=== PATIENT | female | born 1945 ===

== ENCOUNTER 2019-07-23 18:59 | Emergency (ER) | payer OTHER ==
[2019-07-23] MEDS ORDERED: MORPHINE 4 MG/ML SYR ONE (19:56)
[2019-07-23] MEDS ORDERED: ONDANSETRON 4 MG/2 ML VIAL ONE (19:56)
--- NOTE | 2019-07-23 20:32 | RAD REPORT ---
EXAM DESCRIPTION: RAD - Shoulder Left 2 View - 07/23/2019 8:14 pm CLINICAL HISTORY: PAIN COMPARISON: No comparisons TECHNIQUE: Internal and external rotation views of the left shoulder were obtained. FINDINGS: Proximal left humerus fracture is present. There is an oblique fracture through the greate r tuberosity without distraction or angulation deformity. Additional transverse fracture is suspected at the surgical neck. No pathologic component. There is no dislocation of the humeral head. Minimal AC joint degenerative changes are present. Acromial humeral joint space is normal. IMPRESSION: Proximal left humerus fracture as detailed.
--- NOTE | 2019-07-23 20:36 | ER ---
Nurse's Notes [facility] Name: Kandy Clay Age: 73 yrs Sex: Female : 1945 Arrival Date: 07/23/2019 Time: 19:01 Bed 18 Private MD: Diagnosis: Closed left proximal humerus fracture - oblique fracture of greater tuberosity and transverse fracture of surgical neck Presentation: 07/22 19:02 Chief complaint: EMS states: patient missed the last step and fell and landed on left shoulder. Coronavirus screen: Proceed with normal triage. Ebola Screen: No symptoms or risks identified at this time. Initial Sepsis Screen: Does the patient meet any 2 criteria? No. Patient's initial sepsis screen is negative. Does the patient have a suspected source of infection? No. Patient's initial sepsis screen is negative. Risk Assessment: Do you want to hurt yourself or someone else? Patient reports no desire to harm self or others. Onset of symptoms was July 23, 2019. 19:02 Method Of Arrival: EMS: [facility] 19:02 Acuity: HARSHIL 3 Triage Assessment: 19:15 Injury Description: fall. wh Historical: - Allergies: 19:05 No Known Allergies; - Home Meds: 19:05 Plavix Oral [Active]; - PMHx: 19:05 stroke; - PSHx: 19:05 Thyroidectomy; Appendectomy; back surgery; - Immunization history:: Adult Immunizations up to date. - Social history:: Smoking status: Patient denies any tobacco usage or history of. Screenin:15 Abuse screen: Denies threats or abuse. Denies injuries from another. Nutritional screening: No deficits noted. Tuberculosis screening: No symptoms or risk factors identified. Fall Risk None identified. Assessment: 19:15 General: Appears in no apparent distress. Behavior is calm, cooperative, appropriate wh for age. Pain: Complains of pain in left arm and anterior aspect of left shoulder Pain does not radiate. Pain currently is 9 out of 10 on a pain scale. Pain began 30 min ago. Neuro: Cardiovascular: Capillary refill < 3 seconds. Respiratory: Airway is patent Respiratory effort is even, unlabored, Respiratory pattern is regular, symmetrical. GI: Abdomen is flat, non-distended. : No signs and/or symptoms were reported regarding the genitourinary system. EENT: No signs and/or symptoms were reported regarding the EENT system. Derm: Skin is intact, is healthy with good turgor, Skin is pink, warm \T\ dry. normal. Musculoskeletal: Circulation, motion, and sensation intact. Range of motion: limited in anterior aspect of left shoulder. Vital Signs: 19:02 BP 119 / 68; Pulse 78; Resp 18; Pulse Ox 98% ; Weight 90.72 kg; Height 5 ft. 4 in. (162.56 cm); 19:02 Temp 97.8; 21:00 BP 128 / 61; Pulse 76; Resp 18; Pulse Ox 99% on R/A; 19:02 Body Mass Index 34.33 (90.72 kg, 162.56 cm) ED Course: 19:01 Patient arrived in ED. 19:04 Triage completed. 19:08 Jose Whitehead NP is PHCP. pm1 19:08 Elmer Dominguez MD is Attending Physician. pm1 19:15 Arm band placed on right wrist. 19:15 Patient has correct armband on for positive identification. Bed in low position. Call light in reach. Side rails up X 1. Pulse ox on. NIBP on. 19:25 Antoine Galvez is Primary Nurse. 19:30 No provider procedures requiring assistance completed. Inserted saline lock: 22 gauge in right antecubital area, using aseptic technique. Blood collected. 20:14 Shoulder Left (2 View) XRAY In Process Unspecified. EDMS 21:41 IV discontinued, intact, bleeding controlled, No redness/swelling at site. Administered Medications: 19:50 Drug: morphine 4 mg {Note: RASS 0.} Route: IVP; Site: right antecubital; 20:56 Follow up: Response: No adverse reaction; Pain is decreased; RASS: Alert and Calm (0) 19:52 Drug: Zofran (Ondansetron) 4 mg Route: IVP; Site: right antecubital; 20:56 Follow up: Response: No adverse reaction; Nausea is decreased 21:20 Drug: [place] 10 mg-325 mg 1 tabs Route: PO; 21:38 Follow up: Response: No adverse reaction; Pain is decreased; RASS: Alert and Calm (0) Outcome: 20:36 Discharge ordered by . pm1 21:40 Discharged to home ambulatory, with family. 21:40 Condition: stable 21:40 Discharge instructions given to patient, Instructed on discharge instructions, follow up and referral plans. no drinking with medication, no driving heavy equipment, medication usage, POC Demonstrated understanding of instructions, follow-up care, medications, splint care, POC Prescriptions given X 1. 21:42 Patient left the ED. Signatures: Dispatcher [employer] EDMT Jose Whitehead NP SMART GRID ENGINEER pm1 Antoine Galvez Enid Piper, RN RN
--- NOTE | 2019-07-23 20:36 | EDPHYS ---
Physician Documentation [facility] Name: Kandy Clay Age: 73 yrs Sex: Female : 1945 Arrival Date: 07/23/2019 Time: 19:01 Bed 18 Private MD: ED Physician Elmer Dominguez HPI: 07/22 20:24 This 73 yrs old Female presents to ER via EMS with complaints of Left Shoulder Injury. pm1 20:24 The patient or guardian complains of pain, that is acute. left shoulder. Context: The pm1 problem was sustained at home, resulted from missed a step and landed on her left shoulder, The patient reports no obvious deformity. Onset: The symptoms/episode began/occurred just prior to arrival. Modifying factors: the symptoms are alleviated by remaining still, The symptoms are aggravated by movement. Associated signs and symptoms: Pertinent negatives: Numbness in left arm tingling, Weakness in left arm. Treatment prior to arrival includes: no previous treatment. The patient has not experienced similar symptoms in the past. Historical: - Allergies: 19:05 No Known Allergies; - Home Meds: 19:05 Plavix Oral [Active]; - PMHx: 19:05 stroke; - PSHx: 19:05 Thyroidectomy; Appendectomy; back surgery; - Immunization history:: Adult Immunizations up to date. - Social history:: Smoking status: Patient denies any tobacco usage or history of. ROS: 20:24 Constitutional: Negative for fever, chills, and weight loss, Neck: Negative for injury, pm1 pain, and swelling, Cardiovascular: Negative for chest pain, palpitations, and edema, Respiratory: Negative for shortness of breath, cough, wheezing, and pleuritic chest pain, Abdomen/GI: Negative for abdominal pain, nausea, vomiting, diarrhea, and constipation, Back: Negative for injury and pain. 20:24 Skin: Negative for injury, rash, and discoloration, Neuro: Negative for headache, weakness, numbness, tingling, and seizure. 20:24 MS/extremity: Positive for pain, of the lateral aspect of left shoulder. Exam: 20:24 Constitutional: This is a well developed, well nourished patient who is awake, alert, pm1 and in no acute distress. Neck: Trachea midline, no thyromegaly or masses palpated, and no cervical lymphadenopathy. Supple, full range of motion without nuchal rigidity, or vertebral point tenderness. No Meningismus. 20:24 Eyes: Pupils equal round and reactive to light, extra-ocular motions intact. Lids and lashes normal. Conjunctiva and sclera are non-icteric and not injected. Cornea within normal limits. Periorbital areas with no swelling, redness, or edema. ENT: Nares patent. No nasal discharge, no septal abnormalities noted. Tympanic membranes are normal and external auditory canals are clear. Oropharynx with no redness, swelling, or masses, exudates, or evidence of obstruction, uvula midline. Mucous membranes moist. Chest/axilla: Normal chest wall appearance and motion. Nontender with no deformity. No lesions are appreciated. 20:24 Abdomen/GI: Soft, non-tender. No guarding or rebound. No evidence of tenderness throughout. Back: No spinal tenderness. No costovertebral tenderness. Full range of motion. Skin: Warm, dry with normal turgor. Normal color with no rashes, no lesions, and no evidence of cellulitis. 20:24 Head/face: Noted is no obvious of injury or deformity except abrasion(s), that are mild, of the left side of upper lip. 20:24 Cardiovascular: Exam negative for acute changes, Rate: normal, Rhythm: regular, Pulses: no pulse deficits are appreciated. 20:24 Respiratory: Exam negative for acute changes, respiratory distress, shortness of breath. 20:24 Musculoskeletal/extremity: Extremities: grossly normal except: noted in the lateral aspect of left shoulder: pain, tenderness, There is no evidence of deformity. Vital Signs: 19:02 BP 119 / 68; Pulse 78; Resp 18; Pulse Ox 98% ; Weight 90.72 kg; Height 5 ft. 4 in. (162.56 cm); 19:02 Temp 97.8; 21:00 BP 128 / 61; Pulse 76; Resp 18; Pulse Ox 99% on R/A; 19:02 Body Mass Index 34.33 (90.72 kg, 162.56 cm) MDM: 19:14 Patient medically screened. pm1 20:32 Data reviewed: vital signs. Data interpreted: Pulse oximetry: on room air is 98 %. pm1 Interpretation: normal. Counseling: I had a detailed discussion with the patient and/or guardian regarding: the historical points, exam findings, and any diagnostic results supporting the discharge/admit diagnosis, radiology results, the need for outpatient follow up, for definitive care, a orthopedic surgeon, to return to the emergency department if symptoms worsen or persist or if there are any questions or concerns that arise at home. 07/23 01:26 ED course: FIRE CHIEF aware reviewed. pm1 07/22 19:21 Order name: Shoulder Left (2 View) XRAY; Complete Time: 20:36 pm1 07/22 19:21 Order name: Sling; Complete Time: 20:56 pm1 07/22 19:21 Order name: IV Saline Lock; Complete Time: 19:52 pm1 Administered Medications: 07/22 19:50 Drug: morphine 4 mg {Note: RASS 0.} Route: IVP; Site: right antecubital; 20:56 Follow up: Response: No adverse reaction; Pain is decreased; RASS: Alert and Calm (0) 19:52 Drug: Zofran (Ondansetron) 4 mg Route: IVP; Site: right antecubital; 20:56 Follow up: Response: No adverse reaction; Nausea is decreased 21:20 Drug: [place] 10 mg-325 mg 1 tabs Route: PO; 21:38 Follow up: Response: No adverse reaction; Pain is decreased; RASS: Alert and Calm (0) Disposition: 07/23 21:10 Co-signature as Attending Physician, Elmer Dominguez MD. rn Disposition: 07/23/19 20:36 Discharged to Home. Impression: Closed left proximal humerus fracture - oblique fracture of greater tuberosity and transverse fracture of surgical neck. - Condition is Stable. - Discharge Instructions: Humerus Fracture Treated With Immobilization, How to Use a Sling. - Prescriptions for Tylenol- Codeine #3 300-30 mg Oral Tablet - take 2 tablets by ORAL route every 6 hours As needed; 20 tablet. - Medication Reconciliation Form, Thank You Letter, Antibiotic Education, Prescription Opioid Use form. - Follow up: Emergency Department; When: As needed; Reason: Worsening of condition. Follow up: Private Physician; When: 2 - 3 days; Reason: Recheck today's complaints, Continuance of care, Re-evaluation by your physician. - Problem is new. - Symptoms have improved. Signatures: Dispatcher [employer] EDMS Elmer Dominguez MD MD rn Marinas, Jose, GENERAL PASSENGER AGENT GENERAL PASSENGER AGENT pm1 Antoine Galvez Enid Parikh RN RN Corrections: (The following items were deleted from the chart) 07/22 20:36 20:36 07/23/2019 20:36 Discharged to Home. Impression: Closed left proximal humerus pm1 fracture. Condition is Stable. Forms are Medication Reconciliation Form, Thank You Letter, Antibiotic Education, Prescription Opioid Use. pm1 20:38 20:36 07/23/2019 20:36 Discharged to Home. Impression: Closed left proximal humerus pm1 fracture. Condition is Stable. Forms are Medication Reconciliation Form, Thank You Letter, Antibiotic Education, Prescription Opioid Use. Follow up: Emergency Department; When: As needed; Reason: Worsening of condition. Follow up: Private Physician; When: 2 - 3 days; Reason: Recheck today's complaints, Continuance of care, Re-evaluation by your physician. Problem is new. Symptoms have improved. pm1 21:42 20:38 07/23/2019 20:36 Discharged to Home. Impression: Closed left proximal humerus wh fracture - oblique fracture of greater tuberosity and transverse fracture of surgical neck. Condition is Stable. Forms are Medication Reconciliation Form, Thank You Letter, Antibiotic Education, Prescription Opioid Use. Follow up: Emergency Department; When: As needed; Reason: Worsening of condition. Follow up: Private Physician; When: 2 - 3 days; Reason: Recheck today's complaints, Continuance of care, Re-evaluation by your physician. Problem is new. Symptoms have improved. pm1
[2019-07-23] MEDS ORDERED: HYDROCODONE/APAP 10/325 TAB ONE (21:34)
[2019-07-23 21:50] VITALS: BP 128/61; TEMP 97.8; O2SAT 99
== END 2019-07-23 21:42 | disposition home or self-care (01) ==
LOC: ER 18:59
DX: S42.252A Displaced fracture of greater tuberosity of left humerus, initial encounter for closed fracture (principal); S42.212A Unspecified displaced fracture of surgical neck of left humerus, initial encounter for closed fracture; W19.XXXA Unspecified fall, initial encounter; Y93.89 Activity, other specified; Y92.009 Unspecified place in unspecified non-institutional (private) residence as the place of occurrence of the external cause; Z79.01 Long term (current) use of anticoagulants
CPT/HCPCS: 73030; 96375; 96374; 99284; J2405